=== PATIENT | male | born 1975 | race Caucasian/White ===

== ENCOUNTER 2017-01-04 06:41 | Inpatient (IN) | payer BC, OTHER ==
[~2017-01-04] VITALS: Ht 177.8 cm; Wt 122.5 kg
[~2017-01-04 06:41] MED LIST: ASPI-1159 PO; ATOR20TA PO; CLOP75TA16 PO; METO25TA6 PO; OMEP20CA10 PO
[2017-01-04] MEDS ORDERED: ONDANSETRON HCL 4MG/2ML VIAL IV STA (07:01)
[2017-01-04] MEDS ORDERED: SODIUM CHLORIDE 0.9% 1,000 ML IV ONE (07:01)
[2017-01-04] MEDS ORDERED: MORPHINE SULFATE 4 MG/ML CPJ (NOT FOR IM USE) IV STA (07:01)
[2017-01-04 07:21] LABS: HEMATOCRIT. 42.4 % (42.0-52.0); HEMOGLOBIN. 14.2 g/dL (14.0-18.0); MEAN CORPUSCULAR HEMOGLOBIN 25.7 pg (28.0-32.0); MEAN CORPUSCULAR VOLUME 76.5 fL (80.0-94.0); MEAN PLATELET VOLUME 8.1 fl (7.4-10.4); PLATELET 243 x1000/uL (130-400); RED BLOOD CELL COUNT 5.54 mill/uL (4.7-6.1); RED CELL DISTRIBUTION WIDTH 15.5 % (11.6-14.6)
[2017-01-04 07:30] LABS: PARTIAL THROMBOPLASTIN TIME 25.2 sec (23.4-31.0); PROTHROMBIN TIME 10.2 sec (9.4-11.6)
[2017-01-04 07:31] LABS: CARBON DIOXIDE 21 mEq/L (21-32); CHLORIDE 106 mEq/L (98-107)
[2017-01-04 07:38] LABS: TROPONIN I < 0.02 ng/mL (0.00-0.04)
[2017-01-04] MEDS ORDERED: MORPHINE SULFATE 10 MG/ML CPJ IV NR (07:45)
[2017-01-04 08:11] LABS: GLUCOSE URINE NEGATIVE (NEGATIVE); KETONES URINE NEGATIVE (NEGATIVE); LEUKOCYTE ESTERASE URINE NEGATIVE (NEGATIVE); NITRITE URINE NEGATIVE (NEGATIVE); OCCULT BLOOD URINE NEGATIVE (NEGATIVE); PH URINE 6.5 (4.5-8.0); PROTEIN URINE NEGATIVE (NEGATIVE)
[2017-01-04 08:15] LABS: CLARITY URINE CLEAR (CLEAR); COLOR URINE YELLOW (YELLOW)
[2017-01-04 08:33] LABS: PLATELET ESTIMATE NORMAL
[2017-01-04 10:35] LABS: ETHANOL BLOOD < 10 mg/dL; HDL CHOLESTEROL 40 mg/dL (40-59); LDL CHOLESTEROL 101 mg/dL (5-100)
[2017-01-04 11:00] VITALS: BP 143/94
[2017-01-04] MEDS ORDERED: NITROGLYCERIN 0.4MG TABLET SL SL PRN (11:30)
[2017-01-04] MEDS ORDERED: ONDANSETRON HCL 4MG/2ML VIAL IV PRN (11:30)
[2017-01-04] MEDS ORDERED: CLONIDINE 0.1MG TABLET PO PRN (11:30)
[2017-01-04] MEDS ORDERED: DOCUSATE SODIUM 100MG CAPSULE PO PRN (11:30)
[2017-01-04] MEDS ORDERED: DIPHENHYDRAMINE 50MG/ML VIAL IV PRN (11:30)
[2017-01-04] MEDS ORDERED: NA PHOS,M-B/NA PHOS,DI-BA ENEMA 118ML PR PRN (11:30)
[2017-01-04] MEDS ORDERED: IPRATROPIUM/ALBUTEROL 0.5-3(2.5)MG/3ML NEB INH PRN (11:30)
[2017-01-04] MEDS ORDERED: ACETAMINOPHEN 325MG TABLET PO PRN (11:30)
[2017-01-04] MEDS ORDERED: KETOROLAC 15MG/ML VIAL IV PRN (11:30)
[2017-01-04] MEDS ORDERED: GUAIFENESIN 200MG/10ML SUGAR FREE UDC PO PRN (11:30)
[2017-01-04] MEDS ORDERED: MAGNESIUM/ALUMINUM HYDROXIDE/SIMETHICONE 30ML UDC PO PRN (11:30)
[2017-01-04] MEDS ORDERED: LORAZEPAM 2MG/ML CPJ IV PRN (11:30)
[2017-01-04] MEDS ORDERED: FENOFIBRATE NANOCRYSTALLIZED 145MG TABLET PO SCH (14:00)
[2017-01-04 16:05] VITALS: BP 150/113
[2017-01-04 16:57] LABS: CREATINE KINASE 84 IU/L (39-308); CREATINE KINASE MB FRACTION 0.5 ng/mL (0.5-3.6); TROPONIN I < 0.02 ng/mL (0.00-0.04)
[2017-01-04] MEDS ORDERED: ZOLPIDEM TARTRATE 5MG TABLET PO PRN (19:00)
[2017-01-04] MEDS ORDERED: ASCORBIC ACID 500 MG TABLET PO SCH (21:00)
[2017-01-04] MEDS ORDERED: METOPROLOL TARTRATE 25MG TABLET PO SCH (21:00)
[2017-01-05] MEDS ORDERED: CLOPIDOGREL 75MG TABLET PO SCH (09:00)
[2017-01-05] MEDS ORDERED: PANTOPRAZOLE SODIUM 40 MG/VIAL IV SCH (09:00)
[2017-01-05] MEDS ORDERED: ASPIRIN 325MG EC TABLET PO SCH (09:00)
[2017-01-05 10:20] LABS: *AMPHETAMINES SCREEN URINE NEGATIVE (NEGATIVE); *BARBITURATES SCREEN URINE NEGATIVE (NEGATIVE); *BENZODIAZEPINES SCREEN URINE NEGATIVE (NEGATIVE); *COCAINE SCREEN URINE NEGATIVE (NEGATIVE); CANNABINOID URINE SCREEN NEGATIVE (NEGATIVE); METHADONE URINE SCREEN NEGATIVE (NEGATIVE); OPIATES URINE SCREEN PRESUMTIVE POSITIVE (NEGATIVE); PHENCYCLIDINE URINE SCREEN NEGATIVE (NEGATIVE)
== END 2017-01-04 17:20 | disposition left against medical advice (07) | DRG 313 ==
LOC: ER 06:41 → ENRESERV 09:44 → 5WST 10:10 → EDBEDREQ 10:12 → EDBEDREQTM 10:12 → ER 10:32
PROVIDERS: ADMIT Internal Medicine; ATTEND Internal Medicine
DX: R07.89 Other chest pain (principal); I25.10 Atherosclerotic heart disease of native coronary artery without angina pectoris; E66.9 Obesity, unspecified; E78.00 Pure hypercholesterolemia, unspecified; I10 Essential (primary) hypertension; Z82.5 Family history of asthma and other chronic lower respiratory diseases; Z95.1 Presence of aortocoronary bypass graft; Z95.5 Presence of coronary angioplasty implant and graft; Z53.21 Procedure and treatment not carried out due to patient leaving prior to being seen by health care provider; Z79.899 Other long term (current) drug therapy; Z79.82 Long term (current) use of aspirin; R73.9 Hyperglycemia, unspecified; Z68.38 Body mass index [BMI] 38.0-38.9, adult
CPT/HCPCS: 36415; 70450; 71010; 80053; 80061; 80305; 81003; 82550; 82553; 83036; 83605; 83690; 83880; 84484; 85025; 85610; 85730; 93005; 96361; 96374; 96375; 99285; G0482; J1885; J2270; J2405; J7030

== ENCOUNTER 2018-04-15 02:19 | Inpatient (IN) | payer MEDICAID, OTHER ==
[~2018-04-15] VITALS: Ht 188 cm; Wt 101.2 kg
[~2018-04-15 02:19] MED LIST changes: -CLOP75TA16 PO
[2018-04-15] MEDS ORDERED: FAMOTIDINE 20MG/2ML VIAL IV STA (03:26)
[2018-04-15] MEDS ORDERED: SODIUM CHLORIDE 0.9% 1,000 ML IV ONE (03:26)
[2018-04-15] MEDS ORDERED: ONDANSETRON HCL 4MG/2ML INJ IV STA (03:26)
[2018-04-15] MEDS ORDERED: MORPHINE SULFATE 10 MG/ML CPJ IV ONE (03:30)
[2018-04-15 03:39] LABS: EOSINOPHILS % 4.2 % (0.0-5.0); HEMATOCRIT. 44.5 % (42.0-52.0); HEMOGLOBIN. 14.8 g/dL (14.0-18.0); LYMPHOCYTES % 60.2 % (20.0-50.0); MEAN CORPUSCULAR HEMOGLOBIN 25.9 pg (28.0-32.0); MEAN CORPUSCULAR VOLUME 77.6 fL (80.0-94.0); MEAN PLATELET VOLUME 8.3 fl (7.4-10.4); MONOCYTES % 5.1 % (2.0-8.0); NEUTROPHILS % 29.5 % (40.0-76.0); PLATELET 255 x1000/uL (130-400); RED BLOOD CELL COUNT 5.74 mill/uL (4.7-6.1); RED CELL DISTRIBUTION WIDTH 15.3 % (11.6-14.6)
[2018-04-15 03:40] LABS: CHLORIDE 107 mEq/L (98-107)
[2018-04-15] MEDS ORDERED: IOHEXOL-350 100 ML BOTTLE ONE (06:00)
[2018-04-15 09:00] VITALS: BP 152/100
[2018-04-15] MEDS ORDERED: IPRATROPIUM/ALBUTEROL 0.5-3(2.5)MG/3ML NEB INH PRN (09:00)
[2018-04-15] MEDS ORDERED: DOCUSATE SODIUM 100MG CAPSULE PO PRN (09:00)
[2018-04-15] MEDS ORDERED: HYDROCODONE/ACETAMINOPHEN 10/325MG TABLET PO PRN (09:00)
[2018-04-15] MEDS ORDERED: ACETAMINOPHEN 325MG TABLET PO PRN (09:00)
[2018-04-15] MEDS ORDERED: DIPHENHYDRAMINE 50MG/ML VIAL IV PRN (09:00)
[2018-04-15] MEDS ORDERED: ONDANSETRON HCL 4MG/2ML INJ IV PRN (09:00)
[2018-04-15] MEDS ORDERED: HYDRALAZINE 20MG/ML VIAL IV PRN (09:00)
[2018-04-15] MEDS ORDERED: ASPIRIN 81MG EC TABLET PO SCH (09:00)
[2018-04-15] MEDS ORDERED: GUAIFENESIN 200MG/10ML SUGAR FREE UDC PO PRN (09:00)
[2018-04-15] MEDS ORDERED: MAGNESIUM/ALUMINUM HYDROXIDE/SIMETHICONE 30ML UDC PO PRN (09:00)
[2018-04-15] MEDS ORDERED: CLONIDINE 0.1MG TABLET PO PRN (09:00)
[2018-04-15] MEDS ORDERED: LORAZEPAM 2MG/ML CPJ IV PRN (09:00)
[2018-04-15 09:11] LABS: LDL CHOLESTEROL 115 mg/dL (5-100)
[2018-04-15 09:12] LABS: HDL CHOLESTEROL 38 mg/dL (40-59); T4 FREE 0.92 ng/dL (0.76-1.46)
[2018-04-15 09:17] VITALS: BP 152/100
[2018-04-15 09:30] VITALS: BP 152/100
[2018-04-15] MEDS ORDERED: creon PO (10:54)
[2018-04-15 12:00] VITALS: BP 123/76
[2018-04-15] MEDS: ENOXAPARIN 40MG/0.4ML SYR SUBCUT SCH (12:25)
[2018-04-15] MEDS: ASPIRIN 81MG TABLET PO SCH (12:25)
[2018-04-15] MEDS: SODIUM CHLORIDE 0.9% INJ 3ML FLUSH IVF SCH ×2 (14:00→21:14)
[2018-04-15 16:00] VITALS: BP 114/73
[2018-04-15 18:51] LABS: CREATINE KINASE 85 IU/L (39-308)
[2018-04-15 18:52] LABS: CREATINE KINASE MB FRACTION < 1.0 ng/mL (0.5-3.6)
[2018-04-15 20:00] VITALS: BP 134/93
[2018-04-15] MEDS: HYDROMORPHONE HCL/PF 2MG/ML CPJ IV PRN (20:35)
[2018-04-15] MEDS ORDERED: ATORVASTATIN CALCIUM 40MG TABLET PO SCH (21:00)
[2018-04-16] VITALS: BP 126/76
[2018-04-16 02:49] LABS: CREATINE KINASE 77 IU/L (39-308)
[2018-04-16 02:50] LABS: CREATINE KINASE MB FRACTION < 1.0 ng/mL (0.5-3.6)
[2018-04-16] MEDS: HYDROMORPHONE HCL/PF 2MG/ML CPJ IV PRN (02:51)
[2018-04-16 04:00] VITALS: BP 123/76
[2018-04-16] MEDS: SODIUM CHLORIDE 0.9% INJ 3ML FLUSH IVF SCH ×2 (06:05→07:59)
[2018-04-16 07:04] LABS: HEMATOCRIT. 42.2 % (42.0-52.0); HEMOGLOBIN. 13.7 g/dL (14.0-18.0); LYMPHOCYTES % 51.9 % (20.0-50.0); MEAN CORPUSCULAR HEMOGLOBIN 25.4 pg (28.0-32.0); MEAN CORPUSCULAR VOLUME 78.5 fL (80.0-94.0); MEAN PLATELET VOLUME 8.3 fl (7.4-10.4); NEUTROPHILS % 36.1 % (40.0-76.0); PLATELET 244 x1000/uL (130-400); RED BLOOD CELL COUNT 5.38 mill/uL (4.7-6.1); RED CELL DISTRIBUTION WIDTH 15.4 % (11.6-14.6)
[2018-04-16 07:21] LABS: CHLORIDE 106 mEq/L (98-107)
[2018-04-16 07:41] LABS: CREATINE KINASE 73 IU/L (39-308)
[2018-04-16 07:45] LABS: CREATINE KINASE MB FRACTION < 1.0 ng/mL (0.5-3.6)
[2018-04-16 08:00] VITALS: BP 144/82
[2018-04-16] MEDS: ASPIRIN 81MG TABLET PO SCH (08:13)
[2018-04-16] MEDS: ENOXAPARIN 40MG/0.4ML SYR SUBCUT SCH (08:13)
== END 2018-04-16 09:35 | disposition home or self-care (01) | DRG 243 ==
LOC: ER 02:19 → 6WST 05:38 → EDBEDREQ 05:40 → EDBEDREQTM 05:40 → ENRESERV 07:47
PROVIDERS: ADMIT Internal Medicine; ATTEND Internal Medicine
DX: K21.9 Gastro-esophageal reflux disease without esophagitis (principal); N28.1 Cyst of kidney, acquired; I25.10 Atherosclerotic heart disease of native coronary artery without angina pectoris; E78.1 Pure hyperglyceridemia; E78.5 Hyperlipidemia, unspecified; I10 Essential (primary) hypertension; J45.909 Unspecified asthma, uncomplicated; I25.2 Old myocardial infarction; Z79.82 Long term (current) use of aspirin; Z79.899 Other long term (current) drug therapy; Z82.5 Family history of asthma and other chronic lower respiratory diseases; Z95.1 Presence of aortocoronary bypass graft; Z95.5 Presence of coronary angioplasty implant and graft; M94.0 Chondrocostal junction syndrome [Tietze]
CPT/HCPCS: 36415; 71045; 71275; 74174; 80061; 82550; 82553; 83036; 83880; 84439; 84443; 84484; 85379; 93005; 93306; 93970; 96361; 96374; 96375; 99285; J1170; J1650; J2270; J2405; J3490; J7030; Q9967

== ENCOUNTER 2018-07-12 03:31 | Emergency (ER) | payer MEDICAID ==
[~2018-07-12] VITALS: Ht 177.8 cm; Wt 110.0 kg
[~2018-07-12 03:31] MED LIST changes: +creon PO
[2018-07-12] MEDS ORDERED: ONDANSETRON HCL 4MG/2ML INJ IV STA (04:10)
[2018-07-12] MEDS ORDERED: MORPHINE SULFATE 4 MG/ML CPJ (NOT FOR IM USE) IV STA (04:10)
[2018-07-12] MEDS ORDERED: NITROGLYCERIN OINT 1GM/INCH UDPKT TD ONE (04:15)
[2018-07-12 04:35] LABS: BASOPHILS % 1.6 % (0.0-2.0); HEMATOCRIT. 43.7 % (42.0-52.0); LYMPHOCYTES % 54.9 % (20.0-50.0); MEAN CORPUSCULAR HEMOGLOBIN 26.2 pg (28.0-32.0); MEAN CORPUSCULAR VOLUME 76.5 fL (80.0-94.0); MEAN PLATELET VOLUME 8.1 fl (7.4-10.4); NEUTROPHILS % 34.5 % (40.0-76.0); PLATELET 252 x1000/uL (130-400); RED BLOOD CELL COUNT 5.72 mill/uL (4.7-6.1); RED CELL DISTRIBUTION WIDTH 15.1 % (11.6-14.6)
[2018-07-12 04:43] LABS: CHLORIDE 105 mEq/L (98-107)
[2018-07-12 05:20] LABS: ETHANOL BLOOD < 10 mg/dL
[2018-07-12 07:34] VITALS: BP 115/68
[2018-07-12] MEDS ORDERED: ENOXAPARIN 40MG/0.4ML SYR SUBCUT SCH (08:15)
[2018-07-12] MEDS ORDERED: DOCUSATE SODIUM 100MG CAPSULE PO PRN (08:15)
[2018-07-12] MEDS ORDERED: IPRATROPIUM/ALBUTEROL 0.5-3(2.5)MG/3ML NEB INH PRN (08:15)
[2018-07-12] MEDS ORDERED: GUAIFENESIN 200MG/10ML SUGAR FREE UDC PO PRN (08:15)
[2018-07-12] MEDS ORDERED: ZOLPIDEM TARTRATE 5MG TABLET PO PRN (08:15)
[2018-07-12] MEDS ORDERED: ACETAMINOPHEN 325MG TABLET PO PRN (08:15)
[2018-07-12] MEDS ORDERED: CLONIDINE 0.1MG TABLET PO PRN (08:15)
[2018-07-12] MEDS ORDERED: MAGNESIUM/ALUMINUM HYDROXIDE/SIMETHICONE 30ML UDC PO PRN (08:15)
[2018-07-12] MEDS ORDERED: KETOROLAC 15MG/ML VIAL IV PRN (08:15)
[2018-07-12] MEDS ORDERED: NITROGLYCERIN 0.4MG TABLET SL SL PRN (08:15)
[2018-07-12] MEDS ORDERED: ONDANSETRON HCL 4MG/2ML INJ IV PRN (08:15)
[2018-07-12] MEDS ORDERED: NA PHOS,M-B/NA PHOS,DI-BA ENEMA 118ML PR PRN (08:15)
[2018-07-12] MEDS ORDERED: LORAZEPAM 0.5MG TABLET PO PRN (08:15)
[2018-07-12] MEDS ORDERED: ASPIRIN 325MG EC TABLET PO SCH (09:00)
[2018-07-12] MEDS ORDERED: SUCRALFATE 1 G/10 ML UDC PO SCH (09:00)
[2018-07-12] MEDS ORDERED: METOPROLOL TARTRATE 25MG TABLET PO SCH (09:00)
[2018-07-12] MEDS ORDERED: FAMOTIDINE 20MG TABLET PO SCH (09:00)
== END 2018-07-12 09:45 | disposition left against medical advice (07) ==
LOC: ER 03:31 → EDBEDREQ 05:52 → EDBEDREQTM 05:52 → CANRESERV 07:47 → ENRESERV 07:47 → ER 09:45 → CANBEDREQ 10:02
DX: R07.89 Other chest pain (principal); R11.10 Vomiting, unspecified; I25.2 Old myocardial infarction; I10 Essential (primary) hypertension; F10.20 Alcohol dependence, uncomplicated; Z95.1 Presence of aortocoronary bypass graft; Z95.5 Presence of coronary angioplasty implant and graft; Z79.899 Other long term (current) drug therapy; Y90.0 Blood alcohol level of less than 20 mg/100 ml
CPT/HCPCS: 36415; 71045; 80053; 80061; 80320; 83036; 83690; 84484; 85025; 93005; 96374; 96375; 99284; J2270; J2405; Z7610; G0480

== ENCOUNTER 2019-04-24 09:51 | Inpatient (IN) | payer MEDICAID ==
[~2019-04-24] VITALS: Ht 170.2 cm; Wt 81.6 kg
[~2019-04-24 09:51] MED LIST changes: -ASPI-1159 PO; +ASPI-1497 PO; -OMEP20CA10 PO; +OMEP20CA14 PO
[2019-04-24] MEDS ORDERED: KETOROLAC 30MG/ML VIAL IV STA (10:10)
[2019-04-24 10:39] LABS: BASOPHILS % 0.9 % (0.0-2.0); EOSINOPHILS % 0.9 % (0.0-5.0); HEMATOCRIT. 43.6 % (42.0-52.0); HEMOGLOBIN. 14.4 g/dL (14.0-18.0); LYMPHOCYTES % 10.4 % (20.0-50.0); MEAN CORPUSCULAR HEMOGLOBIN 25.4 pg (28.0-32.0); MEAN PLATELET VOLUME 8.3 fl (7.4-10.4); MONOCYTES % 5.7 % (2.0-8.0); NEUTROPHILS % 82.1 % (40.0-76.0); PLATELET 223 x1000/uL (130-400); RED BLOOD CELL COUNT 5.66 mill/uL (4.7-6.1); RED CELL DISTRIBUTION WIDTH 15.4 % (11.6-14.6)
[2019-04-24 10:46] LABS: CHLORIDE 104 mEq/L (98-107)
[2019-04-24] MEDS ORDERED: MORPHINE SULFATE 4 MG/ML CPJ (NOT FOR IM USE) IV ONE (12:00)
[2019-04-24] MEDS ORDERED: ASPIRIN 325MG EC TABLET PO ONE (12:00)
[2019-04-24] MEDS ORDERED: ACETAMINOPHEN 325MG TABLET PO PRN (12:15)
[2019-04-24] MEDS ORDERED: ONDANSETRON HCL 4MG/2ML INJ IV PRN (12:15)
[2019-04-24] MEDS ORDERED: HYDROCODONE/ACETAMINOPHEN 5/325MG TABLET PO PRN (12:15)
[2019-04-24] MEDS ORDERED: DOCUSATE SODIUM 100MG CAPSULE PO PRN (12:15)
[2019-04-24] MEDS ORDERED: CLONIDINE 0.1MG TABLET PO PRN (12:15)
[2019-04-24] MEDS ORDERED: LABETALOL HCL 20MG/4ML CARPUJECT IV ONE (13:00)
[2019-04-24] MEDS ORDERED: NITROGLYCERIN OINT 1GM/INCH UDPKT TD ONE (13:00)
[2019-04-24] MEDS ORDERED: ENOXAPARIN 40MG/0.4ML SYR SUBCUT ONE (13:00)
[2019-04-24] MEDS ORDERED: LABETALOL 5MG/ML SYR 20 MG/4 ML SYRINGE IV ONE (13:15)
[2019-04-24] MEDS ORDERED: CLOPIDOGREL 75MG TABLET PO NR (14:15)
[2019-04-24 15:34] LABS: CREATINE KINASE 105 IU/L (39-308)
[2019-04-24 15:36] LABS: CREATINE KINASE MB FRACTION < 1.0 ng/mL (0.5-3.6)
[2019-04-24] MEDS: MORPHINE SULFATE 2 MG/ML CPJ (NOT FOR IM USE) IV PRN ×2 (16:09→20:51)
[2019-04-24] MEDS: METOPROLOL TARTRATE 25MG TABLET PO SCH (18:38)
[2019-04-24 23:26] VITALS: BP 166/81
[2019-04-24] MEDS ORDERED: ATORVASTATIN CALCIUM 20MG TABLET PO SCH (23:30)
[2019-04-25] VITALS: BP 135/99
[2019-04-25] MEDS: NITROGLYCERIN OINT 1GM/INCH UDPKT TD SCH ×2 (00:27→06:05)
[2019-04-25 01:09] LABS: CREATINE KINASE 79 IU/L (39-308)
[2019-04-25 01:10] LABS: CREATINE KINASE MB FRACTION < 1.0 ng/mL (0.5-3.6)
[2019-04-25] MEDS: MORPHINE SULFATE 2 MG/ML CPJ (NOT FOR IM USE) IV PRN ×3 (01:13→11:03)
[2019-04-25 04:00] VITALS: BP 157/75
[2019-04-25 06:06] LABS: BASOPHILS % 0.4 % (0.0-2.0); HEMATOCRIT. 41.6 % (42.0-52.0); HEMOGLOBIN. 13.8 g/dL (14.0-18.0); LYMPHOCYTES % 9.2 % (20.0-50.0); MEAN CORPUSCULAR HEMOGLOBIN 25.2 pg (28.0-32.0); MEAN PLATELET VOLUME 8.4 fl (7.4-10.4); MONOCYTES % 7.5 % (2.0-8.0); NEUTROPHILS % 82.9 % (40.0-76.0); PLATELET 208 x1000/uL (130-400); RED BLOOD CELL COUNT 5.47 mill/uL (4.7-6.1); RED CELL DISTRIBUTION WIDTH 14.9 % (11.6-14.6)
[2019-04-25 06:23] LABS: CHLORIDE 100 mEq/L (98-107)
[2019-04-25 06:32] LABS: LDL CHOLESTEROL 96 mg/dL (5-100)
[2019-04-25 06:33] LABS: TOTAL IRON BINDING CAPACITY 343 ug/dL (250-450)
[2019-04-25 06:34] LABS: HDL CHOLESTEROL 55 mg/dL (40-59)
[2019-04-25 07:10] LABS: VITAMIN B12 SERUM 494 pg/mL (211-911)
[2019-04-25] MEDS: METOPROLOL TARTRATE 25MG TABLET PO SCH (08:43)
[2019-04-25] MEDS ORDERED: ASPIRIN 81MG EC TABLET PO SCH ×2 (09:00)
[2019-04-25 09:34] LABS: *AMPHETAMINES SCREEN URINE NEGATIVE (NEGATIVE); *BARBITURATES SCREEN URINE NEGATIVE (NEGATIVE); *BENZODIAZEPINES SCREEN URINE NEGATIVE (NEGATIVE); *COCAINE SCREEN URINE NEGATIVE (NEGATIVE)
[2019-04-25 09:35] LABS: METHADONE URINE SCREEN NEGATIVE (NEGATIVE); OPIATES URINE SCREEN PRESUMTIVE POSITIVE (NEGATIVE); PHENCYCLIDINE URINE SCREEN NEGATIVE (NEGATIVE)
[2019-04-25 09:36] LABS: CANNABINOID URINE SCREEN NEGATIVE (NEGATIVE)
[2019-04-25] MEDS ORDERED: ENOXAPARIN 40MG/0.4ML SYR SUBCUT SCH (13:00)
[2019-04-25 13:36] VITALS: BP 161/94
== END 2019-04-25 14:18 | disposition home or self-care (01) | DRG 199 ==
LOC: ER 09:51 → ENRESERV 21:25 → 7WST 23:14
PROVIDERS: ADMIT Hospitalist; ATTEND Hospitalist
DX: I16.0 Hypertensive urgency (principal); E66.9 Obesity, unspecified; R79.89 Other specified abnormal findings of blood chemistry; I25.10 Atherosclerotic heart disease of native coronary artery without angina pectoris; E78.5 Hyperlipidemia, unspecified; I10 Essential (primary) hypertension; K08.89 Other specified disorders of teeth and supporting structures; Z95.5 Presence of coronary angioplasty implant and graft; Z95.1 Presence of aortocoronary bypass graft; Z79.899 Other long term (current) drug therapy; Z79.82 Long term (current) use of aspirin; Z86.11 Personal history of tuberculosis; I25.2 Old myocardial infarction; Z82.5 Family history of asthma and other chronic lower respiratory diseases; Z68.28 Body mass index [BMI] 28.0-28.9, adult
CPT/HCPCS: 36415; 71045; 80053; 80061; 80305; 82550; 82553; 82607; 82962; 83540; 83550; 83735; 83880; 84484; 85025; 87804; 93005; 93306; 93970; 99291; J1650; J1885; J2270; J2405; J3490

== ENCOUNTER 2020-02-14 11:00 | Emergency (ER) | payer MEDICAID ==
[~2020-02-14] VITALS: Ht 177.8 cm; Wt 115.0 kg
[~2020-02-14 11:00] MED LIST changes: -ASPI-1497 PO
[2020-02-14] MEDS ORDERED: NITROGLYCERIN 0.4MG TABLET SL SL PRN (12:15)
[2020-02-14 13:08] LABS: BASOPHILS % 0.2 % (0.0-2.0); EOSINOPHILS % 14.5 % (0.0-5.0); HEMATOCRIT. 44.1 % (42.0-52.0); HEMOGLOBIN. 14.5 g/dL (14.0-18.0); LYMPHOCYTES % 39.2 % (20.0-50.0); MEAN CORPUSCULAR HEMOGLOBIN 25.5 pg (28.0-32.0); MEAN CORPUSCULAR VOLUME 77.3 fL (80.0-94.0); MONOCYTES % 5.5 % (2.0-8.0); NEUTROPHILS % 40.6 % (40.0-76.0); PLATELET 283 x1000/uL (130-400); RED BLOOD CELL COUNT 5.71 mill/uL (4.7-6.1); RED CELL DISTRIBUTION WIDTH 15.1 % (11.6-14.6)
[2020-02-14] MEDS ORDERED: LABETALOL 5MG/ML SYR 20 MG/4 ML SYRINGE IV ONE (13:15)
[2020-02-14 13:25] LABS: CHLORIDE 106 mEq/L (98-107)
[2020-02-14] MEDS: ASPIRIN 81MG TABLET PO ONE ×2 (13:47→15:56)
[2020-02-14] MEDS ORDERED: NITROGLYCERIN 50MG PREMIX 250 ML IV ONE (14:00)
[2020-02-14] MEDS ORDERED: MORPHINE SULFATE 4 MG/ML CPJ (NOT FOR IM USE) IV ONE (16:00)
[2020-02-14] MEDS ORDERED: LABETALOL HCL 100 MG in DEXT 5% WATER 80 ML IV PRN ×2 (16:00→16:30)
[2020-02-14 17:13] VITALS: BP 145/93
[2020-02-14] MEDS ORDERED: ONDANSETRON HCL 4MG/2ML INJ IV PRN (18:30)
[2020-02-14] MEDS ORDERED: CLONIDINE 0.1MG TABLET PO PRN (18:30)
[2020-02-14] MEDS ORDERED: ACETAMINOPHEN 325MG TABLET PO PRN (18:30)
[2020-02-14] MEDS ORDERED: AMLODIPINE 10MG TABLET PO SCH (18:30)
[2020-02-14] MEDS ORDERED: METOPROLOL TARTRATE 50MG TABLET PO SCH (21:00)
[2020-02-14] MEDS ORDERED: HYDRALAZINE HCL 50MG TABLET PO SCH (21:00)
[2020-02-15] MEDS ORDERED: ASPIRIN 81MG TABLET PO SCH (09:00)
[2020-02-15] MEDS ORDERED: CLOPIDOGREL 75MG TABLET PO SCH (09:00)
== END 2020-02-14 19:01 | disposition left against medical advice (07) ==
LOC: ER 11:00 → EDBEDREQSVC 16:21 → EDBEDREQTM 16:21 → EDBEDREQ 16:21 → ER 19:01 → CANBEDREQ 23:52
DX: R07.89 Other chest pain (principal); M54.2 Cervicalgia; I25.10 Atherosclerotic heart disease of native coronary artery without angina pectoris; I10 Essential (primary) hypertension; I25.2 Old myocardial infarction; Z79.899 Other long term (current) drug therapy
CPT/HCPCS: 36415; 71045; 80053; 83880; 84484; 85025; 93005; 96374; 96375; 99285; J2270; J3490; Z7610; J7060

== ENCOUNTER 2021-04-29 01:22 | Emergency (ER) | payer MEDICAID ==
[~2021-04-29] VITALS: Ht 172.7 cm; Wt 113.0 kg
[2021-04-29] MEDS ORDERED: NITROGLYCERIN OINT 1GM/INCH UDPKT TD ONE (02:15)
[2021-04-29 02:23] LABS: CHLORIDE 106 mEq/L (98-107)
[2021-04-29 02:30] LABS: BASOPHILS % 0.2 % (0.0-2.0); EOSINOPHILS % 2.8 % (0.0-5.0); HEMATOCRIT. 43.3 % (42.0-52.0); HEMOGLOBIN. 14.1 g/dL (14.0-18.0); LYMPHOCYTES % 43.4 % (20.0-50.0); MEAN CORPUSCULAR HEMOGLOBIN 24.3 pg (28.0-32.0); MEAN CORPUSCULAR VOLUME 74.7 fL (80.0-94.0); MEAN PLATELET VOLUME 8.1 fl (7.4-10.4); MONOCYTES % 5.5 % (2.0-8.0); NEUTROPHILS % 48.1 % (40.0-76.0); PLATELET 275 x1000/uL (130-400); RED BLOOD CELL COUNT 5.81 mill/uL (4.7-6.1); RED CELL DISTRIBUTION WIDTH 14.5 % (11.6-14.6)
[2021-04-29] MEDS ORDERED: MORPHINE SULFATE 4 MG/ML CPJ (NOT FOR IM USE) IV ONE (03:45)
[2021-04-29 06:27] VITALS: BP 185/130
[2021-04-29] MEDS ORDERED: HYDROCODONE/ACETAMINOPHEN 5/325MG TABLET PO PRN (07:15)
[2021-04-29] MEDS ORDERED: MAGNESIUM/ALUMINUM HYDROXIDE/SIMETHICONE 30ML UDC PO PRN (07:15)
[2021-04-29] MEDS ORDERED: ONDANSETRON HCL 4MG/2ML INJ IV PRN (07:15)
[2021-04-29] MEDS ORDERED: CLONIDINE 0.1MG TABLET PO PRN (07:15)
[2021-04-29] MEDS ORDERED: ACETAMINOPHEN 325MG TABLET PO PRN (07:15)
[2021-04-29] MEDS ORDERED: LISINOPRIL 20MG TABLET PO SCH (07:30)
[2021-04-29] MEDS ORDERED: AMLODIPINE 10MG TABLET PO SCH (07:30)
[2021-04-29] MEDS ORDERED: NALOXONE HCL 0.4MG/ML VIAL IV PRN (07:30)
[2021-04-29] MEDS ORDERED: ASPIRIN 81MG EC TABLET PO SCH (09:00)
[2021-04-29] MEDS ORDERED: ENOXAPARIN 30MG/0.3ML SYR SUBCUT SCH (09:00)
== END 2021-04-29 09:49 | disposition left against medical advice (07) ==
LOC: ER 01:22 → CANBEDREQ 08:20 → ER 09:49
DX: R07.89 Other chest pain (principal); I10 Essential (primary) hypertension; J45.909 Unspecified asthma, uncomplicated; Z20.822 Contact with and (suspected) exposure to COVID-19
CPT/HCPCS: 36415; 71045; 80053; 83880; 84484; 85025; 87426; 96374; 99284; J2270

== ENCOUNTER 2023-02-04 02:11 | Emergency (ER) | payer MEDICAID ==
[~2023-02-04] VITALS: Ht 175.3 cm; Wt 120.2 kg
[2023-02-04 02:18] VITALS: O2SAT 97
[2023-02-04 03:12] LABS: DIFFERENTIAL COMMENT 0; EOSINOPHILS % 0.9 % (0.0-5.0); HEMATOCRIT. 45.6 % (42.0-52.0); HEMOGLOBIN. 14.9 g/dL (14.0-18.0); LYMPHOCYTES % 40.2 % (20.0-50.0); MEAN CORPUSCULAR HEMOGLOBIN 25.1 pg (28.0-32.0); MEAN CORPUSCULAR HGB CONC 32.7 g/dL (31.0-37.0); MEAN CORPUSCULAR VOLUME 76.7 fL (80.0-94.0); MONOCYTES % 5.9 % (2.0-8.0); PLATELET 327 x1000/uL (130-400); RED BLOOD CELL COUNT 5.94 mill/uL (4.7-6.1); RED CELL DISTRIBUTION WIDTH 15.2 % (11.6-14.6); WHITE BLOOD COUNT 9.7 x1000/uL (4.5-11.0)
[2023-02-04 03:26] LABS: ALANINE AMINOTRANSFERASE 16 IU/L (10-49); ALBUMIN 4.4 g/dL (3.2-4.8); ASPARTATE AMINOTRANSFERASE 25 IU/L (<34); BILIRUBIN TOTAL 0.6 mg/dL (0.1-1.0); CARBON DIOXIDE 26 mEq/L (21-32); CHLORIDE 104 mEq/L (98-107); GLUCOSE 155 mg/dL (70-105); POTASSIUM 3.7 mEq/L (3.5-5.1); SODIUM 137 mEq/L (136-145); UREA NITROGEN BLOOD 8 mg/dL (9-23)
[2023-02-04 03:30] LABS: TROPONIN I HIGH SENSITIVITY < 4 ng/L (3.0-53)
[2023-02-04] MEDS ORDERED: BUPRENORPHINE 8MG SL TABLET SL ONE (06:00)
[2023-02-04] MEDS ORDERED: KETOROLAC 15MG/ML VIAL IM ONE (06:00)
[2023-02-04 06:32] LABS: CLARITY URINE CLEAR (CLEAR); COLOR URINE YELLOW (YELLOW)
[2023-02-04 06:33] LABS: PH URINE 5.5 (4.5-8.0); PROTEIN URINE NEGATIVE (NEGATIVE)
[2023-02-04 06:34] LABS: GLUCOSE URINE TRACE (NEGATIVE); KETONES URINE NEGATIVE (NEGATIVE); LEUKOCYTE ESTERASE URINE NEGATIVE (NEGATIVE); NITRITE URINE NEGATIVE (NEGATIVE); OCCULT BLOOD URINE NEGATIVE (NEGATIVE); UROBILINOGEN URINE 0.2 E.U./dL (0.2-1.0)
[2023-02-04 07:04] LABS: SQUAMOUS EPITHELIAL CELL URINE RARE /lpf (RARE/1+)
[2023-02-04 07:05] LABS: MUCUS URINE 3+ /lpf (NONE/TRACE)
[2023-02-04 07:08] LABS: CALCIUM OXALATE CRYSTALS URINE 1+ /lpf; RBC URINE 0-2 /hpf (0-2); WBC URINE 0-2 /hpf (0-2)
[2023-02-04 07:09] LABS: BACTERIA URINE TRACE; HYALINE CASTS URINE 0-5 /lpf
[2023-02-04] MEDS ORDERED: BUPR2TAB SL (09:51)
[2023-02-04] MEDS ORDERED: CLON-493 MT (09:52)
[2023-02-04] MEDS ORDERED: ONDA4TAB50 MT (09:52)
[2023-02-04 10:05] VITALS: BP 142/84; PULSE 102; RESP 20; TEMP 98.5
== END 2023-02-04 10:19 | disposition home or self-care (01) ==
LOC: ER 02:11
DX: F11.90 Opioid use, unspecified, uncomplicated (principal); I25.2 Old myocardial infarction; I10 Essential (primary) hypertension; E11.9 Type 2 diabetes mellitus without complications; J45.909 Unspecified asthma, uncomplicated
CPT/HCPCS: 80053; 81003; 83880; 83690; 85025; 84484; 36415; 71045; 74176; 93005; 96372; 99285; J1885; Z7610 ×3